=== PATIENT | female | born 1980 | race American Indian/Alaskan Native ===

== ENCOUNTER 2016-09-29 12:13 | Emergency (ER) | payer BC, OTHER ==
[2016-09-29 12:24] VITALS: BMI 32.7
--- NOTE | 2016-09-29 12:39 | OBHP ---
Datetime: 09/29/2016 12:35 IP Adm Impression: , intrauterine IP Chief Complaint Other: back pain and freuency Admit Comment, IP Provider: at 35-weeks came with c/o back ain and frequency from yesterday. pt had her daughter sean and was ehusted. obhx 3 x pmh asthma med pnv ll nkda psh appendectomy soch de ve closed a/p at 35=weeks r/o uti ua cont terri and efm cont close obsr Pelvic Type - PN: Adequate Extremities - PN: Normal Abdomen - PN: Normal Back - PN: Normal Breast - PN: Normal Lungs - PN: Normal Heart - PN: Normal Thyroid - PN: Normal Neurologic - PN: Normal HEENT - PN: Normal General - PN: Normal FHR - Baseline A Provider: 130 Contraction Comments Provider: none Comments, ACOG Physical Exam: gravid,non tender ext no brenda, no calf ten Vital Signs Provider: Reviewed; Within Normal Limits NICHD Variability Prov Fetus A: Moderate 6-25bpm NICHD Accel Fetus A IP Provider: 15X15 FHR Category Provider Fetus A: Category I Dilatation, Provider: 0 Effacement, Provider: 0 Station, Provider: -3 Genitourinary Exam: Normal DTRs - PN: Normal
[2016-09-29 12:49] LABS: RBC URINE 1 /hpf (0-3); URINE BACTERIA OCC (<OCC); URINE BILIRUBIN NEGATIVE (NEGATIVE); URINE BLOOD NEGATIVE (NEGATIVE); URINE COLOR Amber (YELLOW); URINE GLUCOSE (UA) NORMAL (Normal); URINE KETONE NEGATIVE (NEGATIVE); URINE LEUKOCYTE ESTERASE TRACE Leu/uL (Negative); URINE PROTEIN 1+ mg/dL (NEGATIVE); WBC URINE 9 /hpf (0-5)
--- NOTE | 2016-09-29 13:03 | OBHP ---
Datetime: 09/29/2016 12:35 Admit Comment, IP Provider: at 35-weeks came with c/o back ain and frequency from yesterday. pt had her daughter birthdauy and was ehusted. obhx 3 x pmh asthma med pnv ll nkda psh appendectomy soch de ve closed a/p at 35+weeks r/o uti ua cont terri and efm cont close obsr 13.10 ua neg. plan dc home ptl given po hyration d/u pmd in 1-2 days
== END 2016-09-29 13:23 | disposition home or self-care (01) ==
LOC: C.EROB 12:13
DX: O26.893 Other specified pregnancy related conditions, third trimester (principal); M54.9 Dorsalgia, unspecified; Z3A.35 35 weeks gestation of pregnancy

== ENCOUNTER 2016-10-16 18:58 | Inpatient (IN) | payer BC, OTHER ==
[2016-10-16 19:23] VITALS: BMI 32.8
--- NOTE | 2016-10-16 19:35 | OBADHP ---
Datetime: 10/16/2016 19:26 Admit Comment, IP Provider: Chief complaint-abdominal pain HPI 35 y/o at 38 weeks and 1 day here in [place] with c/o contractions.Denies vaginal bleedin g or loss of fluid course compliated by AMA; transfer of care from dr freeman to dr parikh [facility] asthma; hx of depression after of last baby PSH appendectomy OBGYN HX ; NVDX3 Social hx denies tobacco,alcohol or illicit drug use Meds albuterol prn ; vitamins Exam see exam section A/P 35 y/o at 38.1 wga in labor.GSB negative.hx of rapid labor -admit -see orders discussed with dr parikh Pelvic Type - PN: Adequate Extremities - PN: Normal Abdomen - PN: Normal Back - PN: Normal Lungs - PN: Normal Heart - PN: Normal Neurologic - PN: Normal General - PN: Normal Weight - Estimated: 3200 Presentation-Admit: Vertex Contraction Comments Provider: irregular Gestation - Est Wks by US: 38.1 IP Hx Assessment: The History has been Reviewed and is Current Vital Signs Provider: Reviewed; Within Normal Limits IP Chief Complaint: Uterine contractions FHR Category Provider Fetus A: Category I Dilatation, Provider: 1-2 Effacement, Provider: 70 Station, Provider: -2 Genitourinary Exam: Normal EGA AdmitDate IP: 38.1 IP Adm Impression: Term, intrauterine ; Active labor IP Admit Plan: Admit to unit; Initiate labor protocol Datetime: 09/29/2016 12:35 IP Chief Complaint Other: back pain and freuency Breast - PN: Normal Thyroid - PN: Normal HEENT - PN: Normal FHR - Baseline A Provider: 130 Comments, ACOG Physical Exam: gravid,non tender ext no brenda, no calf ten NICHD Variability Prov Fetus A: Moderate 6-25bpm NICHD Accel Fetus A IP Provider: 15X15 DTRs - PN: Normal
[2016-10-16] MEDS: Lactated Ringer's 1,000 ML IV SCH (20:09)
[2016-10-16 20:34] LABS: BASO % 0.3 % (0.0-2.0); EOS # 0.1 K/uL (0.0-0.7); HEMATOCRIT 32.1 % (34.0-47.0); LYMPH # 2.5 K/uL (1.0-4.3); LYMPH % 30.5 % (20.0-40.0); MEAN CELL VOLUME 77.6 fL (81.0-99.0); MEAN CORPUSCULAR HEMOGLOBIN 25.5 pg (27.0-31.0); MEAN CORPUSCULAR HGB CONC 32.8 g/dL (33.0-37.0); MEAN PLATELET VOLUME 7.8 fL (7.2-11.7); MONO # 0.7 K/uL (0.0-0.8); MONO % 8.3 % (0.0-10.0); RED CELL DISTRIBUTION WIDTH 14.3 % (11.5-14.5); WHITE BLOOD COUNT 8.3 K/uL (4.8-10.8)
[2016-10-16 20:47] LABS: CHLORIDE 103 mmol/L (98-107)
[2016-10-16 20:48] LABS: POTASSIUM 3.3 mmol/L (3.6-5.2); SODIUM 136 mmol/L (132-148)
[2016-10-16 20:50] LABS: ALB/GLOB RATIO 0.8 (1.0-2.1); ALKALINE PHOSPHATASE 133 U/L (38-126); AST/SGOT 24 U/L (14-36); BILIRUBIN,TOTAL 0.5 mg/dL (0.2-1.3); BLOOD UREA NITROGEN 9 mg/dL (7-17); CARBON DIOXIDE 21 mmol/L (22-30); GFR AFRICAN-AMERICAN > 60; TOTAL PROTEIN 6.7 g/dL (6.3-8.3)
[2016-10-16 20:51] LABS: ALT/SGPT 26 U/L (9-52); CALCIUM 9.1 mg/dl (8.6-10.4); GLUCOSE,RANDOM 103 mg/dL (65-105)
[2016-10-16 20:59] LABS: RBC URINE 3 /hpf (0-3); URINE BACTERIA RARE (<OCC); URINE BILIRUBIN NEGATIVE (NEGATIVE); URINE BLOOD NEGATIVE (NEGATIVE); URINE COLOR Yellow (YELLOW); URINE GLUCOSE (UA) NORMAL (Normal); URINE KETONE NEGATIVE (NEGATIVE); URINE LEUKOCYTE ESTERASE NEG Leu/uL (Negative); URINE PROTEIN NEGATIVE (NEGATIVE); URINE UROBILINOGEN NORMAL mg/dL (0.2-1.0); WBC URINE 1 /hpf (0-5)
[2016-10-17] MEDS: Lactated Ringer's 1,000 ML IV SCH ×2 (00:08→01:28)
[2016-10-17] MEDS ORDERED: Bupivacaine 0.125%/FentaNYL 200 ML EPI ONE (00:08)
[2016-10-17] MEDS ORDERED: Oxytocin 30 UNIT 30 UNITS/500 ML BAG IV PRN (00:30)
[2016-10-17] MEDS ORDERED: Oxytocin 30 UNIT 30 UNITS/500 ML BAG IV ONE (01:06)
--- NOTE | 2016-10-17 03:42 | OBPN ---
Datetime: 10/17/2016 03:33 IP Progress Impression: Normal progression of labor IP Procedures: Artificial ROM; Sterile Vag Exam IP Progress Plan: Continue present management Contraction Comments Provider: irregular IP Progress Note Comment: S-patient comfortable with epidural O-VSS Afebrile FHT cat1 [place] ctx q2-5min SVE 3-4/70/-2 Pit at 12 A/P Patient at 38.2 wga in labor.On pit now -arom done.clear fluid -continue pit Vital Signs Provider: Reviewed; Within Normal Limits FHR Category Provider Fetus A: Category I Dilatation, Provider: 3-4 Effacement, Provider: 70 Station, Provider: -2 Datetime: 10/16/2016 19:26 Gestation - Est Wks by US: 38.1 Weight - Estimated: 3200 Presentation-Admit: Vertex Datetime: 09/29/2016 12:35 FHR - Baseline A Provider: 130 NICHD Accel Fetus A IP Provider: 15X15 NICHD Variability Prov Fetus A: Moderate 6-25bpm
--- NOTE | 2016-10-17 04:21 | OBPN ---
Datetime: 10/17/2016 04:20 IP Procedures: Sterile Vag Exam IP Progress Plan: Continue present management FHR - Baseline A Provider: 120 IP Progress Note Comment: pt was examined at bed side ve /-2 cont pitocin anticipate NICHD Accel Fetus A IP Provider: 15X15 FHR Category Provider Fetus A: Category I NICHD Variability Prov Fetus A: Moderate 6-25bpm Dilatation, Provider: 4 Effacement, Provider: 70 Station, Provider: -2
--- NOTE | 2016-10-17 04:21 | OBADHP ---
Datetime: 10/17/2016 04:20 FHR - Baseline A Provider: 120 NICHD Variability Prov Fetus A: Moderate 6-25bpm NICHD Accel Fetus A IP Provider: 15X15 FHR Category Provider Fetus A: Category I Dilatation, Provider: 4 Effacement, Provider: 70 Station, Provider: -2 Datetime: 10/17/2016 03:33 Contraction Comments Provider: irregular IP Hx Assessment: The History has been Reviewed and is Current Vital Signs Provider: Reviewed; Within Normal Limits Datetime: 10/16/2016 19:26 Admit Comment, IP Provider: Chief complaint-abdominal pain HPI 35 y/o at 38 weeks and 1 day here in [place] with c/o contractions.Denies vaginal bleedin g or loss of fluid course compliated by AMA; transfer of care from dr freeman to dr parikh [facility] asthma; hx of depression after of last baby PSH appendectomy OBGYN HX ; NVDX3 Social hx denies tobacco,alcohol or illicit drug use Meds albuterol prn ; vitamins Exam see exam section A/P 35 y/o at 38.1 wga in labor.GSB negative.hx of rapid labor -admit -see orders discussed with dr parikh agree with above EGA AdmitDate IP: 38.1
[2016-10-17] MEDS ORDERED: Oxycodone/Acetaminophen 5/325 mg Tab PO PRN (06:06)
[2016-10-17] MEDS ORDERED: Measles, Mumps, and Rubella 0.5 ML VIAL SC ONE (06:06)
[2016-10-17] MEDS ORDERED: Oxytocin 30 UNIT 30 UNITS/500 ML BAG IV SCH (06:15)
[2016-10-17 16:13] VITALS: O2SAT 98
--- NOTE | 2016-10-17 18:04 | OBDS ---
DELIVERY PERSONNEL Delivery Doctor: Dr. Charlton/Dr. Jarrett Tobacco Roller: Dione Wade RN Anesthesiologist: Jeanie Hirsch MD MATERNAL INFORMATION Delivery Anesthesia: Epidural Medications in Delivery: Pitocin Estimated Blood Loss (ml): 250 Placenta Cultured: No Maternal Complications: None RN Comments: to a live baby boy to mother's abdomen, skin to skin. Baby attended to by Chasity Girard RN, 9:9, [place] with mother breast feeding. Provider Comments: baby deliverd in dop. no com. endometrium clean 9/9 LABOR SUMMARY EDC: 10/29/2016 00:00 No. Babies in Womb: 1 Attempted: No Labor Anesthesia: Epidural LABOR INFORMATION Onset of Labor: 10/17/2016 00:41 Complete Dilatation: 10/17/2016 06:41 Cervical Ripening Agents: Cytotec @ (Annotations: 50 mcg po given) Group B Beta Strep: Negative Steroids Given: None MEMBRANES Membranes Rupture Method: Artificial Rupture of Membranes: 10/17/2016 03:31 Length of Rupture (hrs): 3.68 Amniotic Fluid Color: Clear Amniotic Fluid Amount: Small Amniotic Fluid Odor: Normal STAGES OF LABOR Stage 1 hrs: 6 Stage 1 min: 0 Stage 2 hrs: 0 Stage 2 min: 31 Stage 3 hrs: 0 Stage 3 min: 4 Total Time in Labor hrs: 6 Total Time in Labor min: 35 VAGINAL DELIVERY Episiotomy: None Laceration Extension: N/A Laceration Repair: Not Applicable Initial Vag Sponge Count: 10 Final Vag Sponge Count: 10 Initial Vag Sharps Count: 0 Final Vag Sharps Count: 0 Sponge Count Correct: Yes; Vaginal Sweep Performed Sharps Count Correct: Yes Count Comment: needles and 18 instruments BABY A INFORMATION Infant Delivery Date/Time: 10/17/2016 07:12 Method of Delivery: Vaginal Born in Route : No : N/A Forceps: N/A Vacuum Extraction: N/A Shoulder Dystocia : No SHOULDER DYSTOCIA BABY A Delivery Date/Time: 10/17/2016 07:12 PRESENTATION/POSITION BABY A Presentation: Cephalic Cephalic Presentation: Vertex Vertex Position: face to pubes Breech Presentation: N/A PLACENTA INFORMATION BABY A Placenta Delivery Time : 10/17/2016 07:16 Placenta Method of Delivery: Spontaneous Placenta Status: Delivered SCORES BABY A Heart Rate 1 min: >100 bpm Resp Effort 1 min: Good Cry Reflex Irritability 1 min: Cough or Sneeze or Pulls Away Muscle Tone 1 min: Active Motion Color 1 min: Body [place], Extremities Blue Resuscitation Effort 1 min: Tactile Stimulation SCORE 1 MIN: 9 Heart Rate 5 min: >100 bpm Resp Effort 5 min: Good Cry Reflex Irritability 5 min: Cough or Sneeze or Pulls Away Muscle Tone 5 min: Active Motion Color 5 min: Body [place], Extremities Blue SCORE 5 MIN: 9 INFORMATION BABY A Gestational Age at Delivery: 38.2 Gestational Status: Term Infant Outcome : Liveborn Condition : Stable Sex: Male IDENTIFICATION/MEDS BABY A ID Band Number: [id number] ID Band Location: Left Leg; Left Arm Sensor Applied: Yes Sensor Number: [id number] Sensor Location : Cord Clamp Vitamin K Given : Not Given Erythromycin Given: Not Given WEIGHT/LENGTH BABY A Infant Birthweight (gms): 3085 Infant Weight (lb): 6 Weight (oz): 13 Infant Length Inches: 19.25 Infant Length cms: 48.9 CORD INFORMATION BABY A No. Cord Vessels: 3 Nuchal Cord : N/A True Knot: 0 Cord Blood Taken: Yes Infant Suction: Mouth ASSESSMENT BABY A Complications: None Physical Findings at Delivery: Within Normal Limits Respirations: Appears Normal Hand Trucker/ALS Called : No Infant Care By: Chasity Girard Transferred To: Remains with Mother
--- NOTE | 2016-10-18 07:38 | OBPPN ---
Datetime: 10/18/2016 07:34 PP Pain Prov: Within normal limits PP Nausea Prov: Denies PP Flatus Prov: Yes PP Abdomen/Uterus Prov: Normal PP Lochia Prov: Normal PP Extremities Prov: Normal PP Comments Phys Exam Prov: fudus below umblicus ext no edema,no calf ten PP Impression Prov: Normal progression PP Plan Prov: Continue present management PP Progress Note Prov: pt was seen t bed side, pain under control, no n/v, tolerating deit, voiding, min lochia, fl+ ppd#s/p cbc reg deit cont pp care cont paiin management Vital Signs Provider PP: Reviewed; Within Normal Limits
[2016-10-18 08:06] LABS: HEMATOCRIT 29.6 % (34.0-47.0); MEAN CELL VOLUME 78.1 fL (81.0-99.0); MEAN PLATELET VOLUME 7.9 fL (7.2-11.7); RED CELL DISTRIBUTION WIDTH 14.3 % (11.5-14.5); WHITE BLOOD COUNT 8.4 K/uL (4.8-10.8)
--- NOTE | 2016-10-19 09:39 | OBPPN ---
Datetime: 10/19/2016 09:38 PP Pain Prov: Within normal limits PP Nausea Prov: Denies PP Flatus Prov: Yes PP Breasts Prov: Normal PP Heart Prov: Normal PP Lungs Prov: Normal PP Abdomen/Uterus Prov: Normal PP Lochia Prov: Normal PP Vulva/Perineum Prov: Normal PP CVA Tenderness Prov: Normal PP Extremities Prov: Normal PP Comments Phys Exam Prov: Abd: soft NT, Bs- present UT- Firm PP Impression Prov: Normal progression PP Plan Prov: Discharge PP Progress Note Prov: S/P , PPD #2 Clinically Stable. Plan: D/c home
--- NOTE | 2016-10-19 09:43 | OBDCSUM ---
Datetime: 10/19/2016 09:39 Discharged to, Provider: Home Follow up at, Provider: kati Leal Instr Activity: Normal activity Disch Instr Diet: Regular Discharge Instructions, Provider: Routine instructions given Discharge Diagnosis, Provider: Term Delivered Discharge Time: 10/19/2016 09:39 Follow up in weeks, Provider: 6wks Disch Referrals: None Contraception discussed, Prov: Yes Discharge Comment, Provider: S/P Uncomplicated , Clinically Stable Discharge Diagnosis Prov Other: S/P Uncomplicated , Clinically Stable
[2016-10-19 16:34] VITALS: BP 114/74; PULSE 83; RESP 18; TEMP 98.1
== END 2016-10-19 12:33 | disposition home or self-care (01) | DRG 775 ==
LOC: C.EROB 18:58 → C.4D 19:09 → C.4M 10-17 09:05
PROVIDERS: ADMIT Obstetrics & Gynecology; ATTEND Obstetrics & Gynecology
PROC: 10E0XZZ Delivery of Products of Conception, External Approach (ICD-10-PCS; principal; 2016-10-17)
PROC: 10907ZC Drainage of Amniotic Fluid, Therapeutic from Products of Conception, Via Natural or Artificial Opening (ICD-10-PCS; 2016-10-17)
DX: O99.52 Diseases of the respiratory system complicating childbirth (principal); J45.909 Unspecified asthma, uncomplicated; Z37.0 Single live birth; Z3A.38 38 weeks gestation of pregnancy

== ENCOUNTER 2016-12-04 14:18 | Emergency (ER) | payer BC ==
[2016-12-04 14:19] VITALS: BMI 32.8
[2016-12-04 14:58] LABS: RBC URINE 6 /hpf (0-3); URINE BILIRUBIN NEGATIVE (NEGATIVE); URINE COLOR Yellow (YELLOW); URINE GLUCOSE (UA) NORMAL (Normal); URINE KETONE NEGATIVE (NEGATIVE); URINE LEUKOCYTE ESTERASE TRACE Leu/uL (Negative); URINE PROTEIN NEGATIVE (NEGATIVE); URINE UROBILINOGEN NORMAL mg/dL (0.2-1.0); WBC URINE 3 /hpf (0-5)
[2016-12-04 15:00] LABS: URINE BLOOD 1+ (NEGATIVE)
[2016-12-04 15:01] LABS: BASO % 0.3 % (0.0-2.0); EOS # 0.1 K/uL (0.0-0.7); EOS % 1.7 % (0.0-4.0); HEMATOCRIT 41.3 % (34.0-47.0); LYMPH # 2.4 K/uL (1.0-4.3); LYMPH % 41.2 % (20.0-40.0); MEAN CELL VOLUME 79.3 fL (81.0-99.0); MEAN CORPUSCULAR HEMOGLOBIN 26.1 pg (27.0-31.0); MEAN CORPUSCULAR HGB CONC 32.9 g/dL (33.0-37.0); MEAN PLATELET VOLUME 7.2 fL (7.2-11.7); MONO # 0.5 K/uL (0.0-0.8); MONO % 8.5 % (0.0-10.0); RED CELL DISTRIBUTION WIDTH 16.1 % (11.5-14.5); WHITE BLOOD COUNT 5.8 K/uL (4.8-10.8)
[2016-12-04 15:10] LABS: CHLORIDE 99 mmol/L (98-107); POTASSIUM 4.2 mmol/L (3.6-5.2); SODIUM 137 mmol/L (132-148)
[2016-12-04 15:13] LABS: ALKALINE PHOSPHATASE 61 U/L (38-126); ALT/SGPT 41 U/L (9-52); AST/SGOT 30 U/L (14-36); BILIRUBIN,TOTAL 0.8 mg/dL (0.2-1.3); BLOOD UREA NITROGEN 16 mg/dL (7-17); CALCIUM 9.7 mg/dl (8.6-10.4); CARBON DIOXIDE 26 mmol/L (22-30); GFR AFRICAN-AMERICAN > 60; GLUCOSE,RANDOM 80 mg/dL (65-105); TOTAL PROTEIN 8.5 g/dL (6.3-8.3)
[2016-12-04 15:14] LABS: ALCOHOL SERUM < 10 mg/dl (0-10)
[2016-12-04 16:23] VITALS: BP 132/70; PULSE 88; RESP 22; TEMP 97.2; O2SAT 98
--- NOTE | 2016-12-04 17:43 | C.PDOC ---
History Of Present Illness 36 year old female presents to the ED for evaluation of depression which began after she delivered her child in September 2016. Patient states he has felt similar symptoms following each of her previous pregnancies. Patient has never been hospitalized for psychiatric reasons and denies suicidal/homicidal ideation at this time. Time Seen by Provider: 12/04/16 14:29 Chief Complaint (Nursing): Medical Clearance History Per: Patient History/Exam Limitations: no limitations Onset/Duration Of Symptoms: Days Current Symptoms Are (Timing): Still Present Additional History Per: Patient Past Medical History Reviewed: Historical Data, Nursing Documentation, Vital Signs Vital Signs: Last Vital Signs Temp 97.2 F L 12/04/16 16:22 Pulse 88 12/04/16 16:22 Resp 22 12/04/16 16:22 BP 132/70 12/04/16 16:22 Pulse Ox 98 12/04/16 17:52 - Medical History PMH: Asthma, Depression (post x3) Surgical History: Appendectomy (1986) - [employer] Procedures DELIVERY OF PRODUCTS OF CONCEPTION, EXTERNAL APPROACH (10/16/16) DRAINAGE OF AMNIOTIC FL, THERAP FROM POC, VIA OPENING (10/16/16) MANUAL ASSIST DELIV NEC (07/17/14) Family History: States: Unknown Family Hx - Social History Hx Tobacco Use: Yes Hx Alcohol Use: Yes Hx Substance Use: No - Immunization History Hx Tetanus Toxoid Vaccination: No Hx Influenza Vaccination: No Hx Pneumococcal Vaccination: No Review Of Systems Psych: Positive for: Depression. Negative for: Suicidal ideation Physical Exam - Physical Exam Appears: Non-toxic, No Acute Distress Skin: Normal Color, Warm, Dry Head: Atraumatic, Normacephalic Eye(s): bilateral: Normal Inspection Neck: Supple Chest: Symmetrical, No Deformity, No Tenderness Cardiovascular: Rhythm Regular, No Murmur Respiratory: Normal Breath Sounds, No Rales, No Rhonchi, No Wheezing Extremity: Normal ROM, Capillary Refill (less than 2 seconds ) Neurological/Psych: Oriented x3, Normal Speech, Normal Cognition Gait: Steady ED Course And Treatment - Laboratory Results Result Diagrams: 12/04/16 14:58 12/04/16 14:58 O2 Sat by Pulse Oximetry: 98 (on RA) Pulse Ox Interpretation: Normal Progress Note: Bloodwork and urinalysis ordered and reviewed. Patient was evalauted by farmworker grain and cleared for discharge. Disposition - Disposition Referrals: Jasbir Gonzalez MD [Staff Provider] - Disposition: HOME/ ROUTINE Disposition Time: 15:15 Condition: GOOD Additional Instructions: Thank you for letting us take care of you today. Your provider was Dr. Dao. You were treated for depression. The emergency medical care you received today was directed at your acute symptoms. If you were prescribed any medication, please fill it and take as directed. It may take several days for your symptoms to resolve. Return to the Emergency Department if your symptoms worsen, do not improve, or if you have any other problems. Please contact your doctor or call one of the physicians/clinics you have been referred to that are listed on the Patient Visit Information form that is included in your discharge packet. Bring any paperwork you were given at discharge with you along with any medications you are taking to your follow up visit. Our treatment cannot replace ongoing medical care by a primary care provider (PCP) outside of the emergency department. Thank you for allowing the [employer] team to be part of your care today. Follow up with Dr. Gonzalez next week for further management. Instructions: Depression (ED) Forms: [employer] ([place]) - Clinical Impression Clinical Impression: Depression - Scribe Statement The provider has reviewed the documentation as recorded by the Scribe (Cass Mendoza) Provider Attestation: All medical record entries made by the Scribe were at my direction and personally dictated by me. I have reviewed the chart and agree that the record accurately reflects my personal performance of the history, physical exam, medical decision making, and the department course for this patient. I have also personally directed, reviewed, and agree with the discharge instructions and disposition.
== END 2016-12-04 15:30 | disposition home or self-care (01) ==
LOC: C.ER 14:18
DX: F32.9 Major depressive disorder, single episode, unspecified (principal)
CPT/HCPCS: 80053; 81001; 84703; 85025; 99283; G0480